=== PATIENT | female | born 1980 | race Caucasian/White ===

== ENCOUNTER 2016-10-02 10:49 | Emergency (ER) | payer OTHER ==
[~2016-10-02] VITALS: Ht 160 cm; Wt 97.5 kg
[2016-10-02 11:11] VITALS: BP 108/56
[2016-10-02 11:47] LABS: OBC FLU VALID
--- NOTE | 2016-10-02 11:48 | PHYS DOC ---
Past Medical History Past Medical History: Other Additional Past Medical Histor: TORN L SHOULDER Past Surgical History: Other Additional Past Surgical Histo: R FOOT Alcohol Use: Rarely Drug Use: None Adult General Chief Complaint Chief Complaint: FEVER HPI HPI Patient is a 35 year old female presents emergency department stating that she was seen in urgent care approximately 2-3 days ago. She states that she was being treated for an upper respiratory infection was placed on doxycycline. She states that she's been having the symptoms for at least a week. Patient states that this morning she was running a temperature of 102. She states that she did take Tylenol although she was coughing in ended up throwing up the medication. Patient states that she just feels as though she is getting worse and does not feel as though she has improved with the antibiotics. She does state that she's had a sore throat in which she was not tested for strep. Patient also states she has had nasal secretions with blood streaks. She denies diarrhea. Review of Systems Review of Systems Constitutional: fever Eyes: Denies change in visual acuity, redness, or eye pain [] HENT: nasal congestion with sore throat. Nasal drainage with red streaks noted Respiratory: cough denies shortness of breath [] Cardiovascular: No additional information not addressed in HPI [] GI: Denies abdominal pain, nausea, vomiting, bloody stools or diarrhea [] : Denies dysuria or hematuria [] Musculoskeletal: Denies back pain or joint pain [] Integument: Denies rash or skin lesions [] Neurologic: Denies headache, focal weakness or sensory changes [] Current Medications Current Medications Current Medications Medications (Trade) Dose Ordered Sig/Ghassan Start Time Stop Time Status Last Admin Dose Admin Acetaminophen (Tylenol) 650 mg 1X ONCE 10/02/16 12:15 10/02/16 12:16 DC 10/02/16 12:01 650 MG Allergies Allergies Allergies Coded Allergies Type Severity Reaction Last Updated Verified Penicillins Allergy Intermediate 10/02/16 No bacitracin Allergy Intermediate 10/02/16 No cephalexin Allergy Intermediate 10/02/16 No indomethacin Allergy Intermediate 10/02/16 Yes neomycin Allergy Intermediate 10/02/16 No polymyxin B Allergy Intermediate 10/02/16 No tramadol Allergy Intermediate 10/02/16 No Physical Exam Physical Exam Constitutional: Well developed, well nourished, no acute distress, non-toxic appearance. [] HENT: Normocephalic, atraumatic, bilateral external ears normal, oropharynx moist, no oral exudates, nose normal. Bilateral tympanic membranes appear to be normal. Patient with postnasal drip noted. No exudate noted erythematous was noted in the throat. No lymphadenopathy noted. Eyes: PERRLA, EOMI, conjunctiva normal, no discharge. [] Neck: Normal range of motion, no tenderness, supple, no stridor. [] Cardiovascular:Heart rate regular rhythm, no murmur [] Lungs & Thorax: Bilateral breath sounds clear to auscultation [] Skin: Warm, dry, no erythema, no rash. [] Back: No tenderness Extremities: No tenderness, no cyanosis, no clubbing, ROM intact, no edema. [] Neurologic: Alert and oriented X 3, normal motor function, normal sensory function, no focal deficits noted. [] Psychologic: Affect normal, judgement normal, mood normal. [] Current Patient Data Vital Signs Vital Signs Date Time Temp Pulse Resp B/P Pulse Ox O2 Delivery O2 Flow Rate FiO2 10/02/16 11:11 98.8 81 18 95 Room Air 98.8 Lab Values Laboratory Tests Test 10/02/16 11:20 10/02/16 11:23 10/02/16 11:55 Group A Streptococcus Rapid Negative (NEGATIVE) Influenza Type A Antigen Negative (NEGATIVE) Influenza Type B Antigen Negative (NEGATIVE) Urine Test Negative (NEG) EKG EKG [] Radiology/Procedures Radiology/Procedures [facility] [address] [place], [place] [id number] IMAGING REPORT Signed PATIENT: SHAHID LEYVA ACCOUNT: [id number] : 1980 LOCATION: ER AGE: 35 SEX: F EXAM STATUS: REG ER ORD. PHYSICIAN: GONZALEZ BLANCAS NP REASON: cough, fever PROCEDURE: CHEST PA & LATERAL Exam: PA and lateral chest radiograph History: Cough and fever. Comparison: None. Findings: Cardiomediastinal silhouette is within normal limits for size. Bilateral lung quarles are free of focal infiltrate. No pleural effusion is seen. Impression: No acute cardiopulmonary process. DICTATED and SIGNED BY: JANICE JEROME MD DATE: 10/02/16 1216 CC: GONZALEZ BLANCAS RATE CLERK PASSENGER; NON,STAFF ~ [] Course & Med Decision Making Course & Med Decision Making Pertinent Labs and Imaging studies reviewed. (See chart for details) Patient's influenza, strep, and chest x-ray was negative. Patient will be discharged home to continue with her doxycycline. Recommended Tylenol or ibuprofen for fever chills or generalized body aches and discomfort also recommended plenty of fluids. Also recommended patient to follow up with her primary care physician in next 3-4 days. Signs and symptoms to return back to emergency department as been provided. Patient agrees with discharge instructions treatment regimens and follow-up recommendations. [] Dragon Disclaimer Dragon Disclaimer This electronic medical record was generated, in whole or in part, using a voice recognition dictation system. Departure Departure Impression: Primary Impression: Sinusitis Disposition: 01 HOME, SELF-CARE Condition: STABLE Patient Instructions: Sinusitis, [id number] Additional Instructions: Continue to take the doxycycline which she had been prescribed at urgent care. Tylenol or ibuprofen for fever chills or generalized body aches and discomfort. You may take them every 6 hours and this will help with the body discomfort. Drink plenty of fluids. Follow-up the primary care physician in next 3-5 days. Return back to emergency percent symptoms of become worse. GONZALEZ BLANCAS NP Oct 02, 2016 11:48
[2016-10-02 11:53] LABS: NEGATIVE OBC STREP NEG; POSITIVE OBC STREP POS
[2016-10-02 12:14] LABS: NEG OBC UR NEG; POS OBC UR POS
[2016-10-02] MEDS ORDERED: ACETAMINOPHEN 325 MG TABLET. PO ONE (12:15)
--- NOTE | 2016-10-02 12:18 | RAD ---
Exam: PA and lateral chest radiograph History: Cough and fever. Comparison: None. Findings: Cardiomediastinal silhouette is within normal limits for size. Bilateral lung quarles are free of focal infiltrate. No pleural effusion is seen. Impression: No acute cardiopulmonary process.
== END 2016-10-02 12:27 | disposition home or self-care (01) ==
LOC: ER 10:49
DX: J32.9 Chronic sinusitis, unspecified (principal); Z88.1 Allergy status to other antibiotic agents; Z88.0 Allergy status to penicillin; Z88.5 Allergy status to narcotic agent; Z88.8 Allergy status to other drugs, medicaments and biological substances
CPT/HCPCS: 71020; 81025; 87070; 87804; 87880; 99285-25

== ENCOUNTER → 2016-10-04 | Outpatient (CLI) | payer OTHER ==
[2016-10-02 11:11] VITALS: BP 108/56
--- NOTE | 2016-10-04 14:26 | KCIC ---
PROCEDURE Right lower extremity venous Doppler dated 10/04/2016. HISTORY Limb pain. TECHNIQUE Grayscale, color flow and spectral waveform analysis performed to include the deep venous system of the right lower extremity. COMPARISON None. FINDINGS Normal compressibility, phasicity and augmentation of flow throughout. No filling defects are seen. IMPRESSION No evidence of right lower extremity deep vein thrombosis. Electronically signed by: Alcides Brady (Oct 04, 2016 14:24:35)
== END | disposition home or self-care (01) ==
LOC: KCIC US 13:28
PROVIDERS: ATTEND Physical Medicine & Rehabilitation
DX: M79.661 Pain in right lower leg (principal)
CPT/HCPCS: 93971